=== PATIENT | male | born 1965 | race Caucasian/White ===

== ENCOUNTER 2017-02-23 14:09 | Emergency (ER) | payer BC, OTHER ==
--- NOTE | 2017-02-23 14:44 | EDM.PDOC ---
ED HPI ENT - General Chief Complaint: ENT Problem Stated Complaint: SWELLING ON R SIDE OF FACE Time Seen by Provider: 02/23/17 14:24 Source of Information: Reports: Patient, RN notes reviewed - History of Present Illness INITIAL COMMENTS - FREE TEXT/NARRATIVE: 51-year-old male started having pain and right jaw in about 64 days ago. He did see his dentist 3 days ago, had x-rays done and no obvious infection at that time. He started having some swelling yesterday, was seen at [facility] and started on clindamycin 300 mg 3 or 4 times daily. He states after working all night and sleeping for a period of time this morning the swelling is no worse. He is having quite severe pain. He took his first dose of clindamycin yesterday about this time 24 hours ago and has now had a total of 2 doses yesterday, one dose early this morning. He's had some chills, possible low -grade fever. - Related Data Allergies/ADRs: Allergies Allergy/AdvReac Type Severity Reaction Status Date / Time Penicillins Allergy Rash Verified 03/17/16 13:19 [id number] Reductase Allergy Muscle Verified 02/23/17 14:25 Inhibitor Aches Home Meds: Home Meds Colesevelam HCl [Welchol] 0 mg PO DAILY 03/17/16 [History] [place]-3 Fatty Acids [[place]-3] 100 mg PO BID 03/17/16 [History] amLODIPine [Norvasc] 5 mg PO DAILY 03/17/16 [History] Clindamycin HCl 300 mg PO TID 02/23/17 [History] Past Medical History Cardiovascular History: Reports: High cholesterol, Hypertension Genitourinary History: Reports: Renal calculus Neurological History: Reports: Migraines - Past Surgical History HEENT Surgical History: Reports: Tonsillectomy GI Surgical History: Reports: Hernia, inguinal Musculoskeletal Surgical History: Reports: Arthroscopic knee Social & Family History - Tobacco Use Smoking Status *Q: Never Smoker - Caffeine Use Caffeine Use: Reports: Coffee, Soda, Tea - Recreational Drug Use Recreational Drug Use: No - Living Situation & Occupation Living situation: Reports: , with family Occupation: employed ([employer] at [employer]) ED ROS ENT - Review of Systems Review Of Systems: See Below Constitutional: Reports: fever, chills HEENT: Reports: Dental pain (Pain posterior right jaw) Respiratory: Reports: No Symptoms Cardiovascular: Denies: Chest pain GI/Abdominal: Denies: Abdominal pain, Nausea, Vomiting Musculoskeletal: Denies: neck pain Skin: Denies: rash, erythema Neurological: Denies: Numbness, Tingling ED EXAM, ENT - Physical Exam Exam: See Below General Appearance: alert, moderate distress Eye Exam: bilateral eye: PERRL Nose: normal inspection Mouth/Throat: Other (Was swollen posterior to his right posterior molar right lower jaw, no drainage localized soft tissue tenderness) Head: facial swelling (Mild swelling lateral to right proximal jaw, question slight erythema lateral to right jaw, localized soft tissue tenderness lateral to the angle area of right mandible) Neck: supple, other (Tender below angle of right jaw with very mild swelling present) Respiratory/Chest: no respiratory distress, lungs clear, normal breath sounds Cardiovascular: regular rate, rhythm Extremities: normal inspection, normal range of motion Neurological: oriented, no motor/sensory deficits Skin: Warm, Dry Course - Vital Signs Last Recorded V/S: Last Vital Signs Temp 99.4 F 02/23/17 14:19 Pulse 96 02/23/17 14:19 Resp 20 02/23/17 14:19 BP 157/93 H 02/23/17 14:19 Pulse Ox 100 02/23/17 14:19 - Orders/Labs/Meds Orders: Active Orders 24 hr Category Date Time Status Peripheral IV Care [RC] . DIRECTED Care 02/23/17 14:47 Active Sodium Chloride 0.9% [Normal Saline] 1,000 ml Med 02/23/17 15:00 Active IV ONETIME Sodium Chloride 0.9% [Saline Flush] Med 02/23/17 14:47 Active 10 ml FLUSH ASDIRECTED PRN metroNIDAZOLE/Normal Saline [Flagyl 500 MG in NS 100 ML Med 02/23/17 15:52 Ordered ] 500 mg Premix Bag 1 bag IV ONETIME Peripheral IV Insertion Adult [OM.PC] Stat Oth 02/23/17 14:47 Ordered Medication Orders Sodium Chloride (Normal Saline) 1,000 mls @ 999 mls/hr IV ONETIME JAMES Last Admin: 02/23/17 15:01 Dose: 999 mls/hr Metronidazole 500 mg/ Premix 100 mls @ 100 mls/hr IV ONETIME ONE Stop: 02/23/17 16:51 Sodium Chloride (Saline Flush) 10 ml FLUSH ASDIRECTED PRN PRN Reason: Keep Vein Open Last Admin: 02/23/17 15:02 Dose: 10 ml Meds: Medications Generic Name Dose Route Start Last Admin Trade Name Frecierra PRN Reason Stop Dose Admin Sodium Chloride 1,000 mls @ 999 mls/hr 02/23/17 15:00 02/23/17 15:01 Normal Saline IV 999 mls/hr ONETIME JAMES Administration Metronidazole 500 mg/ Premix 100 mls @ 100 mls/hr 02/23/17 15:52 IV 02/23/17 16:51 ONETIME ONE Sodium Chloride 10 ml 02/23/17 14:47 02/23/17 15:02 Saline Flush FLUSH 10 ml ASDIRECTED PRN Administration Keep Vein Open Discontinued Medications Generic Name Dose Route Start Last Admin Trade Name Maxine PRN Reason Stop Dose Admin Hydromorphone HCl 1 mg 02/23/17 14:47 02/23/17 15:01 Dilaudid IVPUSH 02/23/17 14:48 1 mg ONETIME ONE Administration Clindamycin Phosphate 600 mg/ 104 mls @ 100 mls/hr 02/23/17 14:47 02/23/17 15 :01 Sodium Chloride IV 02/23/17 15:49 100 mls/hr ONETIME ONE Administration - Re-Assessments/Exams Free Text/Narrative Re-Assessment/Exam: 02/23/17 15:25. Patient is allergic to penicillin, states he breaks out in a rash. Unfortunately it takes up to penicillin antibiotics as an option for further coverage. We'll give him clindamycin 600 mg IV, we are doing that now. When also give Flagyl 500 mg IV and add oral Flagyl to his current regimen. Also the ibuprofen, gabapentin he is taking currently for pain is not giving him adequate pain relief so we'll need to prescribe something powerful. Departure - Departure Time of Disposition: 17:00 Disposition: Home, Self-Care 01 Condition: serious Clinical Impression: Dental infection Forms: ED Department Discharge Additional Instructions: increase clindamycin antibiotic to 4 times daily, alternate Tylenol and ibuprofen as needed for discomfort or Percocet if needed for severe pain, do not drive or work when taking Percocet. Do not take Tylenol and Percocet at the same time. Flagyl antibiotic as prescribed. Try see her dentist tomorrow if possible, call tomorrow morning for appointment. Return to ED as needed. - My Orders Last 24 Hours: My Active Orders 02/23/17 14:47 Peripheral IV Care [RC] . DIRECTED Sodium Chloride 0.9% [Saline Flush] 10 ml FLUSH ASDIRECTED PRN Peripheral IV Insertion Adult [OM.PC] Stat 02/23/17 15:00 Sodium Chloride 0.9% [Normal Saline] 1,000 ml IV ONETIME 02/23/17 15:52 metroNIDAZOLE/Normal Saline [Flagyl 500 MG in NS 100 ML] 500 mg Premix Bag 1 bag IV ONETIME - Assessment/Plan Last 24 Hours: My Active Orders 02/23/17 14:47 Peripheral IV Care [RC] . DIRECTED Sodium Chloride 0.9% [Saline Flush] 10 ml FLUSH ASDIRECTED PRN Peripheral IV Insertion Adult [OM.PC] Stat 02/23/17 15:00 Sodium Chloride 0.9% [Normal Saline] 1,000 ml IV ONETIME 02/23/17 15:52 metroNIDAZOLE/Normal Saline [Flagyl 500 MG in NS 100 ML] 500 mg Premix Bag 1 bag IV ONETIME
[2017-02-23] MEDS ORDERED: HYDROmorphone 1 MG/ML Syringe IVPUSH ONE (14:47)
[2017-02-23] MEDS ORDERED: Clindamycin Phosphate 600 MG in Sodium Chloride 0.9% 100 ML IV ONE (14:47)
[2017-02-23] MEDS ORDERED: Sodium Chloride 0.9% 10 ML Syringe FLUSH PRN (14:47)
[2017-02-23] MEDS ORDERED: Sodium Chloride 0.9% 1,000 ML IV SCH (15:00)
[2017-02-23] MEDS ORDERED: metroNIDAZOLE/Normal Saline 500 MG in Premix Bag 1 BAG IV ONE (15:52)
[2017-02-23 17:25] VITALS: BP 122/74
== END 2017-02-23 17:15 | disposition home or self-care (01) ==
LOC: JD.ED 14:09
DX: K04.7 Periapical abscess without sinus (principal); I10 Essential (primary) hypertension; E78.00 Pure hypercholesterolemia, unspecified; Z98.890 Other specified postprocedural states; Z79.899 Other long term (current) drug therapy; Z88.0 Allergy status to penicillin; Z88.8 Allergy status to other drugs, medicaments and biological substances
CPT/HCPCS: 96365; 96367; 96375; 99283; J1170; J7030; J7040; J7050; 99284